=== PATIENT | female | born 1950 | race Caucasian/White ===

== ENCOUNTER → 2017-11-11 | Outpatient (CLI) | payer MEDICARE, OTHER ==
[~2017-11-11] MED LIST: BUTA1CAP8 PO; IBUP-1223 PO; LISI1TAB5 PO; LISI1TAB7 PO; PROM25TA10 PO; PROP120C3 PO; PROPANOLOL ER PO; ZOLP10TA5 PO
== END | disposition home or self-care (01) ==
LOC: CFH 09:44
PROVIDERS: ATTEND Genetic Counselor, MS
DX: Z12.31 Encounter for screening mammogram for malignant neoplasm of breast (principal); M81.0 Age-related osteoporosis without current pathological fracture; Z78.0 Asymptomatic menopausal state
CPT/HCPCS: 77063; 77080; 77067

== ENCOUNTER → 2018-03-17 | Outpatient (CLI) | payer MEDICARE, OTHER | END | disposition home or self-care (01) | LOC: CVU 07:19 → EDSTATUS 08:00 | PROVIDERS: ATTEND Genetic Counselor, MS | DX: I11.9 Hypertensive heart disease without heart failure (principal) | CPT/HCPCS: 93017; 93306 ==

== ENCOUNTER → 2019-09-13 | Outpatient (CLI) | payer MEDICARE, OTHER ==
[~2019-09-13] MED LIST changes: +LISI1TAB19 PO; +LISI1TAB20 PO; -LISI1TAB5 PO; -LISI1TAB7 PO; -PROP120C3 PO; +PROP120C50 PO
== END | disposition home or self-care (01) ==
LOC: CFH 13:19
PROVIDERS: ATTEND Nurse Practitioner
DX: G44.52 New daily persistent headache (NDPH) (principal)
CPT/HCPCS: 70450

== ENCOUNTER → 2020-05-05 | Outpatient (CLI) | payer MEDICARE, OTHER ==
[~2020-05-05] MED LIST changes: -LISI1TAB19 PO; +LISI1TAB39 PO
== END | disposition home or self-care (01) ==
LOC: CFH 08:03
PROVIDERS: ATTEND Genetic Counselor, MS
DX: Z12.31 Encounter for screening mammogram for malignant neoplasm of breast (principal)
CPT/HCPCS: 76641; 77063; 77067